=== PATIENT | male | born 1990 | race Hispanic/Latino ===

== ENCOUNTER 2020-08-01 05:33 | Emergency (ER) | payer OTHER ==
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
--- NOTE | 2020-08-01 06:19 | XRay Report ---
RIGHT WRIST 3 VIEWS INDICATION / CLINICAL INFORMATION: wrist pain COMPARISON: None available. FINDINGS: BONES / JOINT(S): No acute fracture or subluxation. No significant arthritis. SOFT TISSUES: No significant abnormality. ADDITIONAL FINDINGS: None. Signer Name: Matthias Gregg MD Signed: 08/01/2020 6:14 AM Workstation Name: [id number]
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
== END 2020-08-01 07:06 | disposition home or self-care (01) ==
LOC: ED 05:33
DX: S70.01XA Contusion of right hip, initial encounter (principal); S60.211A Contusion of right wrist, initial encounter; F17.200 Nicotine dependence, unspecified, uncomplicated; Z79.899 Other long term (current) drug therapy; V09.9XXA Pedestrian injured in unspecified transport accident, initial encounter; Y93.89 Activity, other specified; Y92.488 Other paved roadways as the place of occurrence of the external cause; Y99.8 Other external cause status
CPT/HCPCS: 72100; 99283